=== PATIENT | female | born 1970 | race Caucasian/White ===

== ENCOUNTER 2024-02-15 00:21 | Day surgery (SDC) | payer BC, SELFPAY ==
--- NOTE | 2024-02-11 13:51 | PC.NURSE ---
Report to the Outpatient Waiting Room, entrance under the green pavilion located off [facility], at time 0600 on date 02/15/24. Planned Procedure Time: _07_. Time changes happen often and if your time is changed the preop area will call you the afternoon before. - You and your visitor will be asked to self-screen and do not enter if you have any COVID symptoms. - A mask is optional within the hospital at this time. Patients may have clear liquids (water, carbonated beverages, clear teas, apple juice) until 3 hours prior to surgery with a maximum of 20 ounces. - No food from midnight until time of surgery - Infants may have breast milk until 4 hours before surgery, formula 6 hours prior to surgery. - Children will be allowed to drink immediately following surgery. If applicable, please bring a bottle or sippy cup to assist with drinking. Juice, water, soda, and popsicles are readily available. For infants on formula, please bring formula the day of surgery. Pacifiers are allowed. Take the following medications with a SIP of water the morning of surgery: n/a DO NOT STOP ANY OF YOUR OTHER PRESCRIPTION MEDICATIONS PRIOR TO SURGERY ?EXCEPT THE FOLLOWING Medications to discontinue per physician n/a Date to take last dose Please no make-up, nail czech, hairspray, perfume, deodorant, or body powder the day of surgery. No jewelry (including any body piercings) or valuables the day of surgery, leave them at home. Please take a shower or bath the night before, or the morning of, surgery with an antibacterial soap. Wear comfortable, loose fitting clothing. Children are encouraged to wear pajamas. - Jewelry must be removed prior to entering the operating room. Rings and piercings that are not removed may be cut off. - The hospital will not accept responsibility for valuables. - Please leave all valuables, including medications, at home the day of surgery. If you are going home after surgery, a licensed rear load truck driver must drive you home. - NO public transportation without another adult if you receive anesthesia. - We recommend that an adult stay with you for 24 hours following discharge. - We also recommend that you do not drive, make important decision, drink alcoholic beverages, or take any drugs that were not prescribed by your health care provider for at least 24 hours after your discharge time. For Pediatric surgeries, we recommend two adults accompany the child home. Follow any additional instructions given to you from your surgeon. If you or anyone in your household have experienced Covid symptoms in the past week, please notify your surgeon or the nurse liaison at the phone number below for possible testing. Telephone instructions given to __patient__and asked if any additional questions and then verbalized understanding. Patient advised to call surgeon office or pre surgery nurse liaison [phone] if any additional questions.
[2024-02-15 06:19] VITALS: BP 121/87; PULSE 76; RESP 20; TEMP 36.7; O2SAT 100
[2024-02-15] MEDS: ACETAMINOPHEN 500 MG TABLET 1000 MG PO (06:36)
[2024-02-15] MEDS: LACTATED RINGERS 1,000 ML 30 ML IV CONT (06:40)
[2024-02-15 06:55] LABS: BEDSIDEPREGUCG Negative
--- NOTE | 2024-02-15 07:13 | P.HP_ITS ---
H&P: HPI History of Present Illness Date/Time: 02/15/24 07:13 Chief Complaint: menorrhagia Narrative: Patient is a 53 year old female who presents for hysteroscopy and endometrial ablation, indicated for menorrhagia unresponsive to medical management. She reports prolonged history of irregular bleeding. Endometrial biopsy was benign. She desires surgical management with endometrial ablation. Denies abdominal p ain, chest pain, nausea or vomiting. Review of Systems Review of Systems: All systems reviewed & are unremarkable except as noted in HPI and below PMFSH Social History Social History Smoking status: Never smoker Living arrangements: with family Spiritual care concerns: No Meds Home Medications and Allergies Home Medications Medication Instructions Recorded Confirmed Type estradiol 1 mg tablet 1 mg PO HS 02/11/24 02/15/24 History montelukast 10 mg tablet 10 mg PO HS 02/11/24 02/15/24 History (Singulair) trazodone 100 mg tablet 100 mg PO HS 02/11/24 02/15/24 History Allergies Allergy/AdvReac Type Severity Reaction Status Date / Time codeine Allergy Hallucinati Verified 02/15/24 06:18 ng Iodinated Contrast Media Allergy Vomiting Verified 02/15/24 06:18 Vital Signs Vital Signs - 24 hr 02/15/24 06:19 Temperature 98.0 F Pulse Rate 76 Respiratory Rate 20 Blood Pressure 121/87 Pulse Oximetry 100 Oxygen Delivery Room Air Exam Const: General: comfortable and no acute distress HENMT: Mouth: Yes moist mucous membranes Resp: Effort & Inspection: normal respiratory effort Cardio: Rate: regular rate Extrem: General: normal to inspection Psych: Mental Status: mental status grossly normal Assessment and Plan Assessment and plan (1) Menorrhagia: Code(s): N92.0 - Excessive and frequent menstruation with regular cycle Status: Acute Assessment and Plan: - unresponsive to medical treatment - workup including EMB wnl - risks and benefits of hysteroscopy and endometrial ablation discussed with patient who desires to proceed with procedure
--- NOTE | 2024-02-15 07:16 | P.PNAN_ITS ---
Anes - Initial Pre Proc Eval Procedure: Operation Date: 02/15/24 07:30 Proposed Procedures p Hysteroscopy Clau Endometrial Ablation - Raul Garcia MD Date/Time: 02/15/24 07:16 Surgeon: Raul Garcia MD Pre Op Diagnosis: Excess & Freq Menstruation with Regular cycle Patient Data Age: 53 Gender: F Height: 1.7 m Weight: 59.13 kg Last Vital Signs Temp 98.0 F 02/15/24 06:19 Pulse 76 02/15/24 06:19 Resp 20 02/15/24 06:19 BP 121/87 02/15/24 06:19 Pulse Ox 100 02/15/24 06:19 O2 Del Method Room Air 02/15/24 06:19 Allergies Allergy/AdvReac Type Severity Reaction Status Date / Time codeine Allergy Hallucinati Verified 02/15/24 06:18 ng Iodinated Contrast Media Allergy Vomiting Verified 02/15/24 06:18 Home Medications Medication Instructions Recorded Confirmed Type estradiol 1 mg tablet 1 mg PO HS 02/11/24 02/15/24 History montelukast 10 mg tablet 10 mg PO HS 02/11/24 02/15/24 History (Singulair) trazodone 100 mg tablet 100 mg PO HS 02/11/24 02/15/24 History Laboratory Tests 02/15/24 06:19 POC Urine HCG, Qual Negative U Test Com Pending POC Ur Preg QC Yes Patient hx anesthesia problems: none Family hx anesthesia problems: none Results Review: All pre-operative results and documents have been reviewed as part of the pre- operative evaluation. [facility] Social History Social History Smoking status: Never smoker Living arrangements: with family Spiritual care concerns: No Anes - Eval Final PreProcedure Day of Procedure 02/15/24 07:16 Patient weight: normal Heart: regular rate and rhythm Lungs: clear to auscultation Airway: Mallampati scale class II Neurological: alert and oriented Last oral intake: >/= 8 hours ASA classification: II Emergent: no Anesthetic plan: proceed Anesthesia type and monitoring: general GIVS and standard monitoring Results Review: All pre-operative results and documents have been reviewed as part of the pre- operative evaluation. Informed Consent: The patient's anesthetic plan and its attendant risks and benefits were discussed with the patient/family/POA. Questions were solicited and answers provided to the satisfaction of the patient/family/POA.
--- NOTE | 2024-02-15 07:16 | WPDHPUPDATE1 ---
History and Physical Update Update Date/Time: 02/15/24 07:16 History and Physical has been reviewed, including an updated exam of the patient. There are NO changes in the patient's condition. Risks, benefits, and alternatives have been discussed and questions answered. Patient agrees to proceed with procedure.
[2024-02-15] MEDS: LIDO 1%/EPINEPHRINE 1:100,000 20 ML VIAL 10 ML INFILTRATE (07:47)
[2024-02-15 08:05] VITALS: BP 124/75; PULSE 72; RESP 18
[2024-02-15 08:35] VITALS: BP 128/82; PULSE 64
--- NOTE | 2024-02-15 08:58 | SUR.PHASEII ---
Patient vitals are stable. She is unhooked from monitors and getting dressed. RN is just waiting for discharge orders from Dr. Garcia.
--- NOTE | 2024-02-15 09:02 | P.OP_ITS ---
Procedure Note - Detailed Date of Procedure 02/15/24 Pre-op Diagnosis Excess & Freq Menstruation with Regular cycle Post-op Diagnosis Same Procedure Performed hysteroscopy and endometrial ablation Surgeon Raul Garcia MD Anesthesia General Description of Procedure With IV fluids infusing, the patient was taken to the operating room. The patient was placed in supine position and SCDs were placed on the lower extremities. General anesthesia with endotracheal intubation was given. A time- out took place. The patient was placed in dorsal lithotomy position using Wilfred stirrups and she was prepped and draped in the usual sterile fashion. A bivalved speculum was then inserted into the patient's vagina.?The acorn manipulator was removed. The uterus was sounded to 8 cm.? At this point, the? hysteroscope was then inserted into the uterine cavity. Saline was used as the distension medium. The above findings were noted. Both tubal ostia were visualized and pictures were taken.? The hysteroscope was then removed. The cervix was further dilated to accommodate the Clau device. The Clau device was then opened and the uterine cavity length set at 4 cm.? The device was deployed, the mesh examined, and then reinserted into the sheath.? The device was then inserted into the uterine cavity, deployed, and cavity width measurement was appropriate.? The cavity assessment was performed and was within normal limits.? The device was then activated.? Once the ablation was completed the device was removed and the hysteroscope reinserted.? The burn was noted to be equal and adequate.? The hysteroscope and tenaculum were removed.? The anterior lip of the cervix was hemostatic, the bivalve speculum was then removed.? The patient tolerated the procedure well.? Sponge, lap, needle, and instrument counts were correct X3.? The patient was taken out of the dorsal lithotomy position and awakened from anesthesia and taken to the recovery room in stable condition. Estimated Blood Loss 10 Pathology Yes Complications No immediate complications Condition Stable Disposition Same day
[2024-02-15 09:05] VITALS: BP 123/65; PULSE 65
== END 2024-02-15 09:13 | disposition home or self-care (01) ==
PROVIDERS: PCP Family Medicine; Visit Provider Obstetrics & Gynecology
PROC: 0U5B8ZZ Destruction of Endometrium, Via Natural or Artificial Opening Endoscopic (ICD-10-PCS; CPT 58563; principal; 2024-02-15 07:30)
DX: N92.0 Excessive and frequent menstruation with regular cycle (principal)
CPT/HCPCS: 58563; A9270; J1100; J2250; J2405; J2704; J3010; J7120